=== PATIENT | male | born 1965 | race Caucasian/White ===

== ENCOUNTER 2021-07-04 19:53 | Inpatient (IN) | payer MEDICAID, SELFPAY ==
[2021-07-04 19:50] VITALS: BMI 23.2
[2021-07-04 21:02] VITALS: BP 144/91; PULSE 74; RESP 18; TEMP 36.7; O2SAT 91
[2021-07-04] MEDS: nicotine 4 mg lozenge MUCOUS MEM (21:10)
[2021-07-04] MEDS: trazodone 50 mg Tablet PO (21:20)
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
[2021-07-05] MEDS: hyDROXYzine 25 mg Capsule 50 MG PO (01:21)
--- NOTE | 2021-07-05 01:21 | PC.NURSE ---
Patient was given Trazadone 50mg for insomnia earlier. He just came to the window and said that it did nothing for him. He has just been laying there awake. On q15 min rounds he appeared to be sleeping. Patient was given 50mg of Vistaril at this time to help with anxiety and what he says is insomnia.
--- NOTE | 2021-07-05 02:30 | PC.NURSE ---
Patient at the nurses station asking for a sandwich, milk and yogurt. He was given a sandwich, milk and pudding, He sat on the bench in the [place] and ate and drank. He then went back to bed.
[2021-07-05] MEDS: nicotine 4 mg lozenge MUCOUS MEM ×5 (05:33→20:51)
[2021-07-05 06:00] VITALS: BP 141/79; PULSE 63; RESP 14; TEMP 36.7; O2SAT 93
[2021-07-05] MEDS: thiamine 100 mg Tablet PO (08:35)
[2021-07-05] MEDS: multivitamin therapeutic Tablet 1 TAB PO (08:35)
[2021-07-05] MEDS: folic acid 1 mg Tablet PO (08:35)
--- NOTE | 2021-07-05 08:50 | P.NPUHP_ITS ---
Providers/Chief Complaint Admitting Physician: Guy Brown MD HPI NPU History of Present Illness Bobo Ralph is a 55 year old male admitted to an outside emergency department with the following report: Patient is a 52-year-old male that comes to the emergency department via public bus transportation with chief complaint of visual and auditory hallucinations.? Per patient he was evaluated at [facility] and admitted for 2 days with the same complaints but discharged yesterday.? Patient's says he was supposed to be discharged with Seroquel but he was not sent home with his medications so he continued to have hallucinations.? Patient states that the director business management brought him to the emergency department because he would have to get on a different bus with a different route to get [facility].? Per patient he has been hearing voices and seeing people follow him around.? He says these voices are telling him to take all his pills and not wake up.? Patient states that he had these symptoms before but [place] are bad.? Patient states he knows himself to good and would take all the pills so he wanted to come to the emergency department.? Per patient he did take extra medication today.? Patient states he took 4 of anxiety meds and to gabapentin.? Patient says the bottles are in his jacket.? Patient has Wellbutrin 150 mg Seroquel 50 mg and gabapentin as directed at this time.? He says that he was placed on Zyprexa in the past but no longer takes that medication. He was admitted to the neuropsychiatry unit for definitive treatment of these issues. He says that he has been diagnosed with bipolar disorder and schizophrenia since he was an adolescent. He has been hospitalized 15 or 20 times. He was on disability for that as well as several musculoskeletal problems. He was in assisted for 6 months and then 7 months and released a couple of years ago and they discontinued his disability. They said they were going to start it back but they have not. He has been living with his sister and living on food stamps. He was hospitalized last summer and was doing well up until recently when his Medicaid was discontinued. He said they thought he was to his sister where he was living. He is working on getting it reinstated. He said that he was gradually increased to 20 mg Zyprexa last November and that was very helpful. He ran out of that about 1 month ago. He said that they gave it to him in the hospital recently but did not give it to him on discharge. He was in the hospital for 2 days and they discharged him on Wellbutrin XL 150 mg, Seroquel 50 mg and gabapentin 300 mg 3 times daily. He had those bottles in his jacket pocket when he was in the emergency room. He said that he was hearing voices and seeing things because he did not have his medication. Those things were somewhat better in the hospital but not completely gone. PAST PSYCHIATRIC HISTORY As above SOCIAL HISTORY As above Meds NPU Home Medications Medication Instructions Recorded Confirmed Last Taken Type bupropion HCl 150 mg 24 hr tablet, 150 mg PO 07/05/21 Unknown History extended release gabapentin 300 mg capsule 300 mg 07/05/21 Unknown History quetiapine 50 mg tablet 50 mg 07/05/21 Unknown History Allergies Allergy/AdvReac Type Severity Reaction Status Date / Time fentanyl Allergy ADR-Nausea Verified 07/05/21 01:01 haloperidol [From Haldol] Allergy ADR-Agitate Verified 07/05/21 01:01 d mushroom Allergy ALGY-Hives Verified 07/05/21 01:01 tomato Allergy ALGY-Hives Verified 07/05/21 01:01 Mental Status Exam MSE Comments: This is a 55-year-old male of appropriate weight who appears somewhat older than his stated age and is in no acute distress. He is pleasant and cooperative with evaluation. Psychomotor activity is normal. He is dressed in hospital scrubs. His grooming is poor. psychomotor activity is normal. Speech is at a regular rate and rhythm, normal volume, good articulation, not pressured. Alert, oriented X3 Attention and concentration appears to be normal. Memory is intact Mood is depressed and suicidal. Affect is mildly dysphoric. Thought process is logical and goal-directed. Thought content: He says that he is hearing auditory hallucinations telling him to take his pills and commit suicide. He also has visual hallucinations. No delusions or paranoia are noted. He reports continued current suicidal ideation but no plan in the hospital. and no homicidal ideation. Fund of knowledge is average. Insight and judgment appear to be poor. Impulse control is poor. Vitals/I&O/Wt Last Vital Signs Temp 98.0 F 07/05/21 06:00 Pulse 63 07/05/21 06:00 Resp 14 07/05/21 06:00 BP 141/79 07/05/21 06:00 Pulse Ox 93 07/05/21 06:00 Weight last 48 hrs Weight 72.484 kg Weight 67.382 kg A&P Assessment and plan (1) Schizophrenia: Status: Acute (2) Psychosis: Status: Acute (3) Depression: Status: Acute (4) Suicidal ideation: Status: Acute Plan This is a 55-year-old male diagnosed with schizophrenia and bipolar disorder since he was a teenager who reports auditory and visual hallucinations as well as suicidal ideation. He reports a good previous response to medications to include Zyprexa 10 mg daily. Plan: 1. Continue current medication. Gabapentin 300 mg 3 times daily, Seroquel 50 mg at bedtime, Wellbutrin XL 150 mg every morning and add Zyprexa 10 mg at bedtime and probably increase to 20 mg as tolerated. 2. Continue every 15 minute checks for safety. 3. Encourage individual, group and milieu therapies. 4. Encourage sober living treatment after discharge at the highest level of care to which he is willing to commit. 5. We will monitor for safety for himself in the community prior to discharge. Involuntary Hold Information 96 Hour Hold: 96 Hour Involuntary Admission: No Attestations NPU Medical Necessity Statement*: Inpatient hospitalization is medically necessary and the clinically appropriate intervention at this time. We will initiate medications and make changes as indicated. He will be in the hospital for over 2 midnights. Likely length of stay 4-6 days Coding Level of Care Code Acute Filter Press Tender for Stefanie Grace Diagnoses Schizophrenia F20.9 Psychosis F29 Depression F32.A Suicidal ideation R45.851
[2021-07-05] MEDS: LORazepam 2 mg Tablet PO (10:20)
--- NOTE | 2021-07-05 10:21 | PC.NURSE ---
PRN ATIVAN 2 MG GIVEN PER PROTOCOL, CIWA SCORE 11, PT C/O AGITATION
[2021-07-05] MEDS: gabapentin 300 mg Capsule PO ×2 (13:41→20:41)
[2021-07-05 14:00] VITALS: BP 146/86; PULSE 75; RESP 16; TEMP 36.8; O2SAT 93
[2021-07-05] MEDS: OLANZapine 5 mg ODT PO (14:41)
--- NOTE | 2021-07-05 14:43 | PC.NURSE ---
PRN ZYPREXA ZYDIS 5 MG GIVEN PO PER PT C/O AGITATION. PT STATED THE ATIVAN DIDN'T HELP
[2021-07-05 20:25] VITALS: BP 121/72; PULSE 68; RESP 19; TEMP 36.6; O2SAT 94
[2021-07-05] MEDS: quetiapine 25 mg Tablet 50 MG PO (20:41)
[2021-07-05] MEDS: trazodone 50 mg Tablet PO (20:41)
[2021-07-05] MEDS: OLANZapine 10 mg TABLET PO (20:41)
[2021-07-06] MEDS: nicotine 4 mg lozenge MUCOUS MEM ×4 (00:38→10:46)
[2021-07-06 06:00] VITALS: BP 126/78; PULSE 69; RESP 16; TEMP 36.6; O2SAT 94
--- NOTE | 2021-07-06 08:37 | P.NPUDS_ITS ---
Diagnoses at Discharge Discharge Diagnosis (1) Schizophrenia: Status: Acute (2) Psychosis: Status: Acute (3) Depression: Status: Acute (4) Suicidal ideation: Status: Acute Reason for Visit Reason for Visit: Brief History: History of Present Illness Bobo Ralph is a 55 year old male admitted to an outside emergency department with the following report: Patient is a 52-year-old male that comes to the emergency department via public bus transportation with chief complaint of visual and auditory hallucinations.? Per patient he was evaluated at [facility] and admitted for 2 days with the same complaints but discharged yesterday.? Patient's says he was supposed to be discharged with Seroquel but he was not sent home with his medications so he continued to have hallucinations.? Patient states that the bus washer brought him to the emergency department because he would have to get on a different bus with a different route to get [facility].? Per patient he has been hearing voices and seeing people follow him around.? He says these voices are telling him to take all his pills and not wake up.? Patient states that he had these symptoms before but [place] are bad.? Patient states he knows himself to good and would take all the pills so he wanted to come to the emergency department.? Per patient he did take extra medication today.? Patient states he took 4 of anxiety meds and to gabapentin.? Patient says the bottles are in his jacket.? Patient has Wellbutrin 150 mg Seroquel 50 mg and gabapentin as directed at this time.? He says that he was placed on Zyprexa in the past but no longer takes that medication. He was admitted to the neuropsychiatry unit for definitive treatment of these issues.? He says that he has been diagnosed with bipolar disorder and schizophrenia since he was an adolescent.? He has been hospitalized 15 or 20 times.? He was on disability for that as well as several musculoskeletal problems.? He was in jail for 6 months and then 7 months and released a couple of years ago and they discontinued his disability.? They said they were going to start it back but they have not.? He has been living with his sister and living on food stamps.? He was hospitalized last summer and was doing well up until recently when his Medicaid was discontinued.? He said they thought he was to his sister where he was living.? He is working on getting it reinstated.? He said that he was gradually increased to 20 mg Zyprexa last November and that was very helpful.? He ran out of that about 1 month ago.? He said that they gave it to him in the hospital recently but did not give it to him on discharge.? He was in the hospital for 2 days and they discharged him on Wellbutrin XL 150 mg, Seroquel 50 mg and gabapentin 300 mg 3 times daily.? He had those bottles in his jacket pocket when he was in the emergency room.? He said that he was hearing voices and seeing things because he did not have his medication.? Those things were somewhat better in the hospital but not completely gone. Hospital Course Hospital Course He slowly acclimated to the individual, group and milieu therapies provided. He was started on his outpatient medications and Zyprexa 10 mg was added. He said that the visual and auditory hallucinations were gone the next day. He denied suicidal ideation and insisted on leaving AGAINST MEDICAL ADVICE. We did not have affidavits. He tolerated these doses and showed steady improvement during his stay. He was able to contract for safety outside hospital prior to discharge. During the hospitalization, patient had routine laboratory studies which were within normal limits except for few outliers. Additionally there was a general medical evaluation which was also within normal limits and revealed no new acute processes. Discharge Summary: At the time of discharge, lethality was denied and psychosis was resolving. Mood and anxiety were well managed. Patient endorsed a plan to follow-up with the aftercare recommendations of the treatment team. He said he would arrange his own follow-up with Padmini Meneses patient was evaluated and deemed to be absent credible lethality, and had achieved the maximum benefit from an inpatient hospitalization, so was discharged. Involuntary Hold Information 96 Hour Hold: 96 Hour Involuntary Admission: No Mental Status Exam MSE Comments: This is a 55-year-old male of appropriate weight who appears somewhat older than his stated age and is in no acute distress. He is pleasant and cooperative with evaluation. Psychomotor activity is normal. He is dressed in hospital scrubs. His grooming is poor. psychomotor activity is normal. Speech is at a regular rate and rhythm, normal volume, good articulation, not pressured. Alert, oriented X3 Attention and concentration appears to be normal. Memory is intact Mood is good. Affect is mildly dysphoric. Thought process is logical and goal-directed. Thought content: He says that he is hearing auditory hallucination. He is not obviously attending to internal stimuli. He denies auditory or visual hallucinations. No delusions or paranoia are noted. He denies suicidal ideation. and no homicidal ideation. Fund of knowledge is average. Insight and judgment appear to be poor. Impulse control is poor. Cognition: Patient Appearance: Disheveled/Poor Hygiene Ability to Follow Directions: Good Patient Orientation (long list): Person, Place, Time, Name, Age, Month and Year Comprehension Ability: No Impairment Hallucination Type: None Delusion Description: Not Present Thought Process: Appropriate Affect: Affect Description: Anxious Behavior: Patient Behavior: Irritable and Negative Speech Pattern: Clear Discharge Data Vitals: Last Vital Signs Temp 97.8 F 07/06/21 06:00 Pulse 69 07/06/21 06:00 Resp 16 07/06/21 06:00 BP 126/78 07/06/21 06:00 Pulse Ox 94 07/06/21 06:00 Discharge Plan Discharge Patient Disposition: Home Condition: Stable Prescriptions: New olanzapine 10 mg Tablet 10 mg PO BEDTIME 30 Days Qty: 30 1RF Continued bupropion HCl [Wellbutrin XL] 150 mg tablet extended release 24 hr 150 mg PO DAILY 0RF quetiapine [Seroquel] 50 mg tablet 50 mg PO BEDTIME 0RF gabapentin [Neurontin] 300 mg capsule 300 mg PO TID 0RF Discharge Orders: Discharge Order (Routine); Ordered 07/06/21 Ordered By: Guy Brown Discharge Diet: Regular Discharge Activity: Resume usual activity Patient Instructions: Opioid Safety Discharge Attestations NPU Time Spent in Discharge Care*: greater than 30 min Specific Discharge Activities: Specific discharge activities: educating patient, discussing with supervisor case loading/social workers/dc planners, documenting/other paperwork and evaluating patient/reviewing data Coding Level of Care Code Acute Chg FW DC note Diagnoses Schizophrenia F20.9 Psychosis F29 Depression F32.A Suicidal ideation R45.851
[2021-07-06] MEDS: folic acid 1 mg Tablet PO (08:42)
[2021-07-06] MEDS: buPROPion XL (24 HR) 150 mg Tablet PO (08:42)
[2021-07-06] MEDS: gabapentin 300 mg Capsule PO (08:42)
[2021-07-06] MEDS: multivitamin therapeutic Tablet 1 TAB PO (08:42)
[2021-07-06] MEDS: thiamine 100 mg Tablet PO (08:42)
[2021-07-06] MEDS: acetaminophen 325 mg Tablet 650 MG PO (08:42)
[2021-07-06 08:50] VITALS: BP 126/78; PULSE 69; RESP 16; TEMP 36.6; O2SAT 94
== END 2021-07-06 11:50 | disposition left against medical advice (07) | DRG 885 ==
PROVIDERS: Admitting Provider Psychiatry & Neurology Psychiatry; Visit Provider Psychiatry & Neurology Psychiatry
DX: F25.0 Schizoaffective disorder, bipolar type (principal); R45.851 Suicidal ideations; Z53.29 Procedure and treatment not carried out because of patient's decision for other reasons
CPT/HCPCS: 97165

== ENCOUNTER 2021-07-26 12:54 | Inpatient (IN) | payer MEDICAID, SELFPAY ==
[2021-07-26 13:07] VITALS: BMI 19.2
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
[2021-07-26] MEDS: naproxen 500 mg Tablet PO (13:48)
[2021-07-26] MEDS: nicotine 4 mg lozenge MUCOUS MEM ×3 (13:48→19:05)
[2021-07-26] MEDS: hyDROXYzine 25 mg Capsule 50 MG PO (13:48)
[2021-07-26 14:00] VITALS: BP 128/76; PULSE 71; RESP 20; TEMP 36.6; O2SAT 91
[2021-07-26] MEDS: OLANZapine 5 mg ODT PO (16:20)
[2021-07-26 20:51] VITALS: BP 151/84; PULSE 65; RESP 18; TEMP 36.6; O2SAT 97
[2021-07-26] MEDS: gabapentin 300 mg Capsule PO (20:59)
[2021-07-26] MEDS: OLANZapine 10 mg TABLET PO (20:59)
[2021-07-26] MEDS: quetiapine 25 mg Tablet 50 MG PO (20:59)
[2021-07-26] MEDS: trazodone 50 mg Tablet PO (22:27)
[2021-07-27] MEDS: nicotine 4 mg lozenge MUCOUS MEM ×7 (03:51→23:37)
[2021-07-27 06:00] VITALS: BP 135/82; PULSE 56; RESP 17; TEMP 36.6; O2SAT 93
[2021-07-27] MEDS: buPROPion XL (24 HR) 150 mg Tablet PO (07:43)
[2021-07-27] MEDS: gabapentin 300 mg Capsule PO ×3 (07:43→20:19)
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
[2021-07-27] MEDS: OLANZapine 5 mg ODT PO ×2 (13:20→17:45)
[2021-07-27 14:00] VITALS: BP 142/77; PULSE 79; RESP 20; TEMP 36.5; O2SAT 94
[2021-07-27] MEDS: naproxen 500 mg Tablet PO (14:16)
[2021-07-27] MEDS: nicotine 2 mg Gum BUCCAL (15:59)
[2021-07-27] MEDS: ondansetron 4 MG Tablet PO (17:12)
[2021-07-27] MEDS: hyDROXYzine 25 mg Capsule 50 MG PO (20:19)
[2021-07-27] MEDS: OLANZapine 10 mg TABLET PO (20:19)
[2021-07-27] MEDS: trazodone 50 mg Tablet PO ×2 (20:19→23:37)
[2021-07-27] MEDS: quetiapine 25 mg Tablet 50 MG PO (20:19)
[2021-07-27 21:27] VITALS: BP 134/85; PULSE 65; RESP 16; TEMP 36.8; O2SAT 95
[2021-07-28] MEDS: nicotine 4 mg lozenge MUCOUS MEM ×8 (01:45→22:49)
[2021-07-28] MEDS: naproxen 500 mg Tablet PO ×3 (01:45→20:01)
[2021-07-28 06:00] VITALS: BP 138/86; PULSE 62; RESP 16; TEMP 36.4; O2SAT 95
[2021-07-28] MEDS: gabapentin 300 mg Capsule PO ×3 (07:53→21:33)
[2021-07-28] MEDS: buPROPion XL (24 HR) 150 mg Tablet PO (07:53)
[2021-07-28] MEDS: ondansetron 4 MG Tablet PO ×2 (12:03→21:08)
[2021-07-28] MEDS: ibuprofen 800 mg tablet PO (13:15)
[2021-07-28 14:00] VITALS: BP 134/83; PULSE 71; RESP 20; TEMP 36.9; O2SAT 96
[2021-07-28] MEDS: OLANZapine 5 mg ODT PO (16:36)
[2021-07-28] MEDS: hyDROXYzine 25 mg Capsule 50 MG PO (16:36)
--- NOTE | 2021-07-28 16:41 | P.NPUPN_ITS ---
Subjective NPU Subjective: Patient presents today reporting that he is doing better now that he has his medication. And was focusing on discharge. We agreed we would work with him to try to get him back home in the next 48 hours as the social work team working on transportation, etc. given his limitations. He had another episode of emesis. He reports otherwise feeling well and hopeful for discharge in the morning. Mental Status Exam MSE Comments: This is an underweight white male in hospital scrubs with limited grooming and eye contact. No abnormal movements except for psychomotor retardation. Cooperative with exam in mild to moderate distress. Speech was decreased rate and volume and appeared weak.? Mood described as a little better, affect less sickly and subdued. Thought process organized. Thought contact: p atient denies suicidal or homicidal ideation, there were no delusions noted but paranoia reported, patient endorsed auditory but denied visual hallucinations. Attention and concentration appeared intact and memory appeared reliable but none were formally tested. Patient is alert and oriented times three. Insight and judgment appear fair and impulse control appears limited. Vitals/I&O/Wt Last Vital Signs Temp 98.4 F 07/28/21 14:00 Pulse 71 07/28/21 14:00 Resp 20 H 07/28/21 14:00 BP 134/83 07/28/21 14:00 Pulse Ox 96 07/28/21 14:00 A&P Assessment and plan (1) Substance abuse: Status: Acute (2) Schizophrenia: Status: Acute (3) Depression: Status: Acute (4) Psychosis: Status: Acute Plan This is a 55-year-old male diagnosed with schizophrenia and bipolar disorder since he was a teenager who reports auditory and visual hallucinations as well as suicidal ideation who was admitted to the unit less than a month ago and returns reporting issues with access to medication. ?Plan: 1.? Continue current medication.? Increased Seroquel to 100 mg p.o. nightly 2.? Continue every 15 minute checks for safety. 3.? Encourage individual, group and milieu therapies. 4.? Encourage sober living treatment after discharge at the highest level of care to which he is willing to commit. 5.? We will monitor for safety for himself in the community prior to discharge. Involuntary Hold Information 96 Hour Hold: 96 Hour Involuntary Admission: No Attestations NPU Medical Necessity Statement*: Inpatient hospitalization is medically necessary and the clinically appropriate intervention at this time. We will monitor medication to make changes as indicated. Likely length of stay 1-3 days. Coding Level of Care Code Acute Labor Contract Analyst for Stefanie Fwd Diagnoses Substance abuse F19.10 Schizophrenia F20.9 Depression F32.A Psychosis F29
[2021-07-28] MEDS: quetiapine 100 mg Tablet PO (21:33)
[2021-07-28] MEDS: OLANZapine 10 mg TABLET PO (21:34)
[2021-07-28] MEDS: trazodone 50 mg Tablet PO (21:35)
[2021-07-28 21:42] VITALS: BP 128/75; PULSE 62; RESP 18; TEMP 36.7; O2SAT 90
[2021-07-29] MEDS: nicotine 4 mg lozenge MUCOUS MEM ×4 (00:32→09:15)
--- NOTE | 2021-07-29 04:20 | PC.NURSE ---
PT SLEPT EARLY IN NIGHT FOR A BRIEF PERIOD. PT HAS SINCE BEEN UP FREQUENTLY, HAS HAD SEVERAL SNACKS THROUGHOUT NIGHT THEN QUICKLY RETURNS TO BED RESTING WITH EYES CLOSED.
[2021-07-29 06:00] VITALS: BP 146/87; PULSE 59; RESP 16; TEMP 36.7; O2SAT 95
[2021-07-29] MEDS: gabapentin 300 mg Capsule PO (09:15)
[2021-07-29] MEDS: naproxen 500 mg Tablet PO (09:15)
[2021-07-29] MEDS: buPROPion XL (24 HR) 150 mg Tablet PO (09:15)
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
[2021-07-29 09:37] VITALS: BP 146/87; PULSE 59; RESP 16; TEMP 36.7; O2SAT 95
== END 2021-07-29 10:36 | disposition home or self-care (01) | DRG 885 ==
PROVIDERS: Admitting Provider Psychiatry & Neurology Psychiatry; Visit Provider Psychiatry & Neurology Psychiatry
DX: F25.0 Schizoaffective disorder, bipolar type (principal); R45.851 Suicidal ideations; F19.10 Other psychoactive substance abuse, uncomplicated
CPT/HCPCS: 97165; Q0162